=== PATIENT | female | born 1980 | race Caucasian/White ===

== ENCOUNTER → 2022-08-23 07:39 | Outpatient (CLI) | payer OTHER, SELFPAY ==
--- NOTE | 2022-08-23 07:39 | US_ITS ---
FINAL REPORT CLINICAL HISTORY: abdominal pain FINDINGS: Sonographic images of the right upper quadrant were obtained. The pancreas is partially obscured.The liver has an unremarkable appearance. The gallbladder is filled with gallstones. There is no evidence of biliary ductal dilatation.The common duct measures 4mm. Limited images of the right kidney are unremarkable. IMPRESSION: Cholelithiasis. Reviewed, Interpreted and Dictated by Tej Gan III, MD Transcribed by Lauren Gil Authenticated and [facility]
--- NOTE | 2022-08-23 07:39 | MM_ITS ---
PROCEDURE INFORMATION: Exam: Bilateral Screening 3D Mammography Exam date and time: 08/23/2022 8:03 AM Age: 41 years old Clinical indication: Baseline. Her paternal grandmother had breast cancer. TECHNIQUE: Imaging protocol: Bilateral Screening tomosynthesis and 2D mammography including computer-aided detection (CAD) when performed. COMPARISON: No relevant prior studies available. FINDINGS: MAMMOGRAPHY: Breast composition: The breasts are heterogeneously dense, which may obscure small masses. Mass: Bilateral isodense partly circumscribed, partly visualized, best seen in the right breast, 6 o'clock, approximately 1.1 cm, middle 3rd, CC frame 16 and MLO frame 29; and in the left breast, outer aspect, approximately 2.5 cm posterior 3rd, CC frame 37 Architectural distortion: None. Calcifications: No suspicious calcifications. Asymmetric density: None. Skin thickening: None. Axillary adenopathy: None. IMPRESSION: Patient will be recalled for bilateral breast ultrasound for scattered bilateral isodense partly circumscribed partly visualized masses best seen in the right breast at 6 o'clock and in the left outer breast. ASSESSMENT: BI-RADS Category 0: Incomplete- Need Additional Imaging Evaluation and/or Prior Mammograms for Comparison
== END ==
PROVIDERS: PCP Family Medicine; Visit Provider Family Medicine
DX: R10.9 Unspecified abdominal pain (principal); Z12.31 Encounter for screening mammogram for malignant neoplasm of breast
CPT/HCPCS: 76705; 77063; 77067

== ENCOUNTER → 2022-08-24 13:03 | Outpatient (CLI) | payer OTHER, SELFPAY ==
--- NOTE | 2022-08-24 13:04 | MR_ITS ---
FINAL REPORT CLINICAL HISTORY: Worsening headaches 36 years of migranes frontal mainly but whole head hurts when she gets them light , noise and smell can make them worse she has had 6 in the past 2 months vision gets worse and she has floaters FINDINGS: Multiplanar MR imaging of the brain was performed without and with contrast. There is no evidence of intracranial hemorrhage or mass. No abnormal extra-axial fluid collection is seen. The ventricular size is within normal limits. There is no evidence of shift of the midline structures. The posterior fossa and brainstem have an unremarkable appearance. No area of abnormal restricted diffusion is identified. No abnormal contrast enhancement is seen. Normal major vessel vascular flow voids are noted. There is mucosal thickening of multiple sinuses. IMPRESSION: No acute intracranial abnormality identified. Reviewed, Interpreted and Dictated by Tej Gan III, MD Transcribed by Lauren Gil Authenticated and . [facility]
== END ==
PROVIDERS: PCP Family Medicine; Visit Provider Nurse Practitioner Family
DX: R51.9 Headache, unspecified (principal)
CPT/HCPCS: 70553; A9576

== ENCOUNTER → 2022-09-13 13:57 | Outpatient (CLI) | payer OTHER, SELFPAY ==
[2022-09-13 14:48] LABS: Basophils # 0.1 K/mm3 (0-0.2); Basophils % 1.4 % (0.1-2.0); Eosinophils # 0.1 K/mm3 (0.0-0.4); Eosinophils % 1.9 % (0.1-12.0); Hematocrit 38.4 % (37.0-47.0); Hemoglobin 12.5 g/dL (12.2-16.2); Lymphocytes # 1.6 K/mm3 (0.7-4.5); Lymphocytes % 29.2 % (10-50); Mean Corpuscular HGB Conc 32.6 g/dL (31.8-35.4); Mean Corpuscular Volume 82.9 fl (81-99); Mean Platelet Volume 11.3 fl (7.4-10.4); Monocytes # 0.3 K/mm3 (0.1-1.0); Monocytes % 5.3 % (1.7-9.3); Neutrophils # 3.3 K/mm3 (1.8-7.8); Neutrophils % 62.3 % (37.0-80.0); Platelet Count 168 K/mm3 (142-424); Red Blood Count 4.63 M/mm3 (4.20-5.40); Red Cell Distribution Width 12.8 % (11.5-17.5); White Blood Count 5.4 K/mm3 (4.8-10.8)
[2022-09-13 14:57] LABS: Alanine Aminotransferase 21 U/L (12-78); Albumin Level 5.1 g/dl (3.5-5.0); Albumin/Globulin Ratio 1.5 (1.1-1.8); Alkaline Phosphatase 67 U/L (38-126); Anion Gap 11.9 mEq/L (5-15); Aspartate Amino Transferase 26 U/L (14-36); Bilirubin,Total 0.5 mg/dl (0.2-1.3); Blood Urea Nitrogen 12 mg/dl (7-17); Calcium 8.9 mg/dl (8.4-10.2); Carbon Dioxide 30 mmol/L (22.0-30.0); Chloride 100 mmol/L (98-107); Estimated Glomerular Filt Rate 93 ml/min (>60); GFR (African American) 112 ML/MIN (>60); Globulin 3.4 g/dL (1.3-3.2); Glucose 92 mg/dl (74-100); Potassium 3.9 mmoL/L (3.5-5.1); Sodium 138 mmol/L (136-145); Total Protein,Serum 8.5 g/dl (6.3-8.2)
[2022-09-13 15:28] LABS: Thyroid Stimulating Hormone 2.41 uIU/mL (0.465-4.68)
[2022-09-13 16:03] LABS: Vitamin B12 551 pg/mL (239-931)
[2022-09-13 16:13] LABS: Folate 4.81 ng/mL
== END ==
PROVIDERS: PCP Family Medicine; Visit Provider Nurse Practitioner Family
DX: R51.9 Headache, unspecified (principal)
CPT/HCPCS: 36415; 80053; 82607; 82746; 84443; 85025

== ENCOUNTER → 2022-09-18 12:33 | Outpatient (CLI) | payer OTHER, SELFPAY ==
--- NOTE | 2022-09-18 12:33 | US_ITS ---
PROCEDURE INFORMATION: Exam: US Left Breast, Complete Exam date and time: 09/18/2022 1:37 PM Age: 41 years old Clinical indication: Mammogram from 08/23/2022 identified bilateral isodense partially circumscribed masses along the right 6 o'clock axis middle 1/3 and left lateral posterior 1/3 TECHNIQUE: Imaging protocol: Complete ultrasound of all four quadrants of the left breast and the retroareolar regions, including ultrasound of the axilla when performed. COMPARISON: MG MM DIG SCREENING MAMM BI W/CAD 08/23/2022 8:03 AM FINDINGS: Breast: Hypoechoic morphologically similar appearing solid masses throughout the left breast demonstrate generally benign morphologic features highly suggestive of fibroadenoma as follows: 1.1 x 0.7 x 0.3 cm left 12 o'clock 2 cm from nipple 0.4 x 0.6 x 0.3 cm left 2 o'clock 2 cm from the nipple 0.9 x 0.8 x 0.2 cm left 10 o'clock 3 cm from the nipple No suspicious solid or cystic mass is present. No architectural distortion or shadowing is present. No axillary adenopathy is present. IMPRESSION: Six-month follow-up targeted ultrasound is recommended to assure stability of 3 morphologically similar appearing solid left breast masses which demonstrate features highly suggestive of benign fibroadenoma ASSESSMENT: BI-RADS category 3: Probably benign
--- NOTE | 2022-09-18 12:33 | US_ITS ---
PROCEDURE INFORMATION: Exam: US Right Breast, Complete Exam date and time: 09/18/2022 1:25 PM Age: 41 years old Clinical indication: Mammogram from 08/23/2022 identified bilateral isodense partially circumscribed masses along the right 6 o'clock axis middle 1/3 and left lateral posterior 1/3 TECHNIQUE: Imaging protocol: Complete ultrasound of all four quadrants of the right breast and the retroareolar regions, including ultrasound of the axilla when performed. COMPARISON: MG MM DIG SCREENING MAMM BI W/CAD 08/23/2022 8:03 AM FINDINGS: Breast: Hypoechoic morphologically similar appearing solid masses throughout the right breast demonstrate generally benign morphologic features highly suggestive of fibroadenoma as follows: 1.2 x 1.1 x 0.9 cm right 7 o'clock 2 cm from the nipple 0.9 x 0.9 x 0.4 cm right 10 o'clock 2 cm from the nipple 0.3 x 0.2 by 0.3 cm right 11 o'clock 2 cm from the nipple No suspicious solid or cystic mass is present. No architectural distortion or shadowing is present. No axillary adenopathy is present. IMPRESSION: Six-month follow-up targeted ultrasound is recommended to assure stability of 3 morphologically similar appearing solid right breast masses which demonstrate features highly suggestive of benign fibroadenoma ASSESSMENT: BI-RADS category 3: Probably benign
--- NOTE | 2022-09-18 12:34 | US_ITS ---
FINAL REPORT CLINICAL HISTORY: abnormal uterine bleeding FINDINGS: Transvaginal sonographic images of the pelvis were obtained. The uterus is anteverted and measures 8.2 x 6.0 x 4.5 cm. The endometrium measures 11 mm, which is within normal limits. No uterine mass is identified. The right ovary not visualized due to overlying bowel gas. The left ovary measures 3.6 cm in length. Normal blood flow seen to the ovaries. There is a 2 cm left ovarian cyst. There is no evidence of free fluid. IMPRESSION: Right ovary not visualized. 2 cm left ovarian cyst. Reviewed, Interpreted and Dictated by Saji Canseco MD Transcribed by Nohemy Rocha Authenticated and . [facility]
== END ==
PROVIDERS: PCP Family Medicine; Visit Provider Obstetrics & Gynecology
DX: R92.8 Other abnormal and inconclusive findings on diagnostic imaging of breast (principal); N93.9 Abnormal uterine and vaginal bleeding, unspecified
CPT/HCPCS: 76641; 76830

== ENCOUNTER → 2022-09-27 15:21 | Outpatient (CLI) | payer OTHER, SELFPAY ==
[2022-09-27 16:33] LABS: Basophils # 0.1 K/mm3 (0-0.2); Basophils % 1.6 % (0.1-2.0); Eosinophils # 0.1 K/mm3 (0.0-0.4); Eosinophils % 1.7 % (0.1-12.0); Hematocrit 38.1 % (37.0-47.0); Hemoglobin 12.2 g/dL (12.2-16.2); Lymphocytes # 1.9 K/mm3 (0.7-4.5); Lymphocytes % 30.1 % (10-50); Mean Corpuscular Volume 84.3 fl (81-99); Mean Platelet Volume 11.4 fl (7.4-10.4); Monocytes # 0.3 K/mm3 (0.1-1.0); Monocytes % 4.2 % (1.7-9.3); Neutrophils % 62.3 % (37.0-80.0); Platelet Count 173 K/mm3 (142-424); Red Blood Count 4.52 M/mm3 (4.20-5.40); Red Cell Distribution Width 12.8 % (11.5-17.5); White Blood Count 6.4 K/mm3 (4.8-10.8)
[2022-09-27 16:47] LABS: Urine Pregnancy, HCG Qual. Negative (Negative)
[2022-09-27 16:56] LABS: Alanine Aminotransferase 14 U/L (12-78); Albumin Level 4.8 g/dl (3.5-5.0); Albumin/Globulin Ratio 1.7 (1.1-1.8); Alkaline Phosphatase 65 U/L (38-126); Aspartate Amino Transferase 21 U/L (14-36); Bilirubin,Total 0.4 mg/dl (0.2-1.3); Blood Urea Nitrogen 10 mg/dl (7-17); Calcium 8.5 mg/dl (8.4-10.2); Carbon Dioxide 28 mmol/L (22.0-30.0); Chloride 102 mmol/L (98-107); Estimated Glomerular Filt Rate 111 ml/min (>60); GFR (African American) 134 ML/MIN (>60); Globulin 2.8 g/dL (1.3-3.2); Glucose 87 mg/dl (74-100); Sodium 138 mmol/L (136-145); Total Protein,Serum 7.6 g/dl (6.3-8.2)
== END ==
PROVIDERS: PCP Family Medicine; Visit Provider Surgery
DX: Z01.812 Encounter for preprocedural laboratory examination (principal); K80.20 Calculus of gallbladder without cholecystitis without obstruction
CPT/HCPCS: 36415; 80053; 81025; 85025

== ENCOUNTER 2022-10-04 09:25 | Day surgery (SDC) | payer OTHER, SELFPAY ==
[2022-10-01 10:53] VITALS: BMI 27.4
[2022-10-04] VITALS (10 sets, daily range): BP systolic 96–143; BP diastolic 52–89; PULSE 60–73; RESP 12–18; TEMP 36.5–43; O2SAT 97–100
--- NOTE | 2022-10-04 09:34 | P.PN_ITS ---
[facility] Disclaimer: The information contained in this section may have been updated after the patient was seen, as this information can be updated by other users. Medical History Abnormal uterine bleeding Allergies History of gastroesophageal reflux (GERD) Migraines Surgical History History of Family History Grandmother Cancer Social History Smoking Status: Never smoker alcohol intake: never substance use type: denies use current occupational status: employed Travel in the last 8 weeks: None household members: spouse and children housing: house [facility] Anesthesia Checklist Patient Identification Patient Identification: Arm Band and Verbal (Name & ) Structural Data Admitted From: Home Planned Operative Procedure/s: Lap. cholecystectomy Consent for Planned Operative Procedure(s) Verified: Yes NPO Status Verified Time NPO: 00:00 Chart Verification Results Verified: HCG Airway Assessment C-Spine Mobility Assessed: Yes TMJ Mobility Assessed: No Dentition: Good Dentition Neurological Assessment Level of Consciousness: Awake Hx Seizures: No Numbness or tingling in extremities: No Anesthesia Plan Anesthesia Risk discussed: Yes Anesthesia Plan: Verified ASA Class: II Anesthesia Type: General
--- NOTE | 2022-10-04 13:18 | EXP.OP.NOTE ---
Date of procedure: 10/04/22 Pre-op Diagnosis:: Symptomatic cholelithiasis Post-op Diagnosis:: Chronic calculus cholecystitis Procedure performed:: Laparoscopic cholecystectomy Surgeon:: Roderick Solis MD Anesthesia: GETA Estimated blood loss (mL): 15 Operative findings:: Significant infundibular thickening Operative note:: After informed consent was obtained, the patient was taken to the operating room and placed in the supine position. General anesthesia was induced and the abdomen was prepped and draped in a sterile fashion. After infiltration with local anesthetic an infraumbilical incision was made. A Veress needle was placed in position. The abdomen was insufflated. A 5 mm optical trocar was placed in position. Under direct visualization, a 12 mm trocar was placed in the subxiphoid position and 2 additional 5 mm trocars were placed in the right upper quadrant. The gallbladder was elevated up and over the liver margin. The tissue around the cystic duct was carefully dissected. 3 clips were placed proximally and the duct was transected with harmonic noman. Harmonic noman were then utilized to dissect the gallbladder away from the liver margin with careful attention to the control of the cystic artery. The gallbladder was placed in a retrieval bag and removed through the subxiphoid trocar site. The right upper quadrant was thoroughly irrigated. No active bleeding or bile leak was noted. Fascia at the subxiphoid trocar site was reapproximated utilizing 0 Ethibond. The remaining trocars were removed. All wounds were irrigated and skin was closed with 4-0 Monocryl in a subcuticular fashion. Steri-Strips were applied. The patient's anesthetic agents were reversed and extubation was completed prior to transfer to recovery in stable condition. Condition: stable Disposition: PACU Specimens:: Gallbladder and contents Complications:: No immediate
--- NOTE | 2022-10-04 13:23 | P.PNANES_ITS ---
[facility] Anesthesia Record Part I Anesthesia Record I Intake, IV Amount: 1,300 Estimated blood loss (mL): 10 Urine output (mL): 0 Blood Pressure: 123/74 SaO2: 97 Pulse Rate: 60 Respiratory Rate: 12 Temperature: 97.8 F Patient is:: Drowsy, Oral/Nasal airway and Stable Stable to PACU at:: 13:23
--- NOTE | 2022-10-05 09:34 | EXP.ANES.II ---
[facility] Anesthesia Record Part II Anesthesia Record Part II Discharge Time: 13:53 Destination: [facility] PACU nurse assessment reviewed?: Yes Patient Condition:: Good Anesthesia Complications:: None Swallowing reflex intact?: Yes Cyanosis?: Yes Blood Pressure: 142/83 Pulse Rate: 61 Temperature: 97.7 F Mental Status: Alert & Oriented Pain level:: 0 Nausea and/or vomitting:: None Intake, IV Amount: 1,000
[2022-10-05 09:36] VITALS: BP 142/83; PULSE 61; TEMP 36.5
== END 2022-10-04 14:30 | disposition home or self-care (01) ==
PROVIDERS: PCP Family Medicine; Visit Provider Surgery
PROC: 0FT44ZZ Resection of Gallbladder, Percutaneous Endoscopic Approach (ICD-10-PCS; CPT 47562; principal; 2022-10-04 11:15)
DX: K80.10 Calculus of gallbladder with chronic cholecystitis without obstruction (principal); Z79.899 Other long term (current) drug therapy
CPT/HCPCS: 47562; 96374; J2405

== ENCOUNTER → 2023-04-18 12:28 | Outpatient (CLI) | payer OTHER, SELFPAY ==
--- NOTE | 2023-04-18 12:29 | US_ITS ---
PROCEDURE INFORMATION: Exam: US Left Breast, Complete Exam date and time: 04/18/2023 1:14 PM Age: 42 years old Clinical indication: 6 month follow-up US breast for left breast masses TECHNIQUE: Imaging protocol: Complete ultrasound of all four quadrants of the left breast and the retroareolar regions, including ultrasound of the axilla when performed. COMPARISON: US BREAST LT COMPLETE 09/18/2022 1:37 PM FINDINGS: Breast: Sonographic images of the left breast including the retroareolar region, all 4 quadrants and the axilla demonstrates 3 stable hypoechoic masses. Left upper outer quadrant 2 cm from the nipple 0.8 x 0.9 x 0.4 cm, 2 o'clock axis 2 cm from the nipple 0.5 x 0.7 x 0.4 cm, and 10 o'clock axis 3 cm from the nipple 0.9 x 1.1 x 0.2 cm. New similar appearing hypoechoic mass in the 11 o'clock axis 5 cm from the nipple measures 0.8 x 0.9 x 0.3 cm.. No architectural distortion or acoustical shadowing. No skin thickening or axillary adenopathy. IMPRESSION: Multiple similar appearing hypoechoic masses in the left breast, 1 of which is new compared to prior sonogram dated 09/18/2022. The remainder stable compared to prior study. A six-month follow-up left breast ultrasound is recommended to ensure stability over time ASSESSMENT: BI-RADS Category 3: Probably benign
--- NOTE | 2023-04-18 12:29 | US_ITS ---
PROCEDURE INFORMATION: Exam: US Right Breast, Complete Exam date and time: 04/18/2023 12:54 PM Age: 42 years old Clinical indication: 6 month follow-up US right breast masses TECHNIQUE: Imaging protocol: Complete ultrasound of all four quadrants of the right breast and the retroareolar regions, including ultrasound of the axilla when performed. COMPARISON: US BREAST RT COMPLETE 09/18/2022 1:25 PM FINDINGS: Breast: Sonographic images of the right breast including the retroareolar region, all 4 quadrants and the axilla demonstrates 3 stable hypoechoic masses. 7 o'clock axis 2 cm from the nipple measuring 1.1 x 1.2 x 0.8 cm, 10 o'clock axis 2 cm from the nipple 0.8 x 0.9 x 0.3 cm, and 11 o'clock axis 2 cm from the nipple 0.7 x 0.4 x 0.2 cm. No architectural distortion or acoustical shadowing. No skin thickening or axillary adenopathy. IMPRESSION: Stable hypoechoic masses compared to prior sonogram dated 09/18/2022. A six-month follow-up right breast ultrasound is recommended for continued close surveillance ASSESSMENT: BI-RADS Category 3: Probably benign
== END ==
PROVIDERS: PCP Family Medicine; Visit Provider Family Medicine
DX: R92.8 Other abnormal and inconclusive findings on diagnostic imaging of breast (principal)
CPT/HCPCS: 76641

== ENCOUNTER 2023-09-03 10:38 | Outpatient (CLI) | payer OTHER, SELFPAY ==
--- NOTE | 2023-09-03 10:39 | MM_ITS ---
PROCEDURE INFORMATION: Exam: MG Bilateral Screening 3D Mammography Exam date and time: 09/03/2023 10:35 AM Age: 42 years old Clinical indication: Screening, has been followed for bilateral breast masses since 09/18/2022, with most recent sonography 04/18/2023. Her paternal grandmother had breast cancer. TECHNIQUE: Imaging protocol: Bilateral Screening tomosynthesis and 2D mammography including computer-aided detection (CAD) when performed. COMPARISON: 1. MG MM DIG SCREENING MAMM BI W/CAD 08/23/2022 8:03 AM 2. US BREAST LT COMPLETE 04/18/2023 1:14 PM 3. US BREAST RT COMPLETE 04/18/2023 12:54 PM 4. US BREAST LT COMPLETE 09/18/2022 1:37 PM FINDINGS: MAMMOGRAPHY: Breast composition: The breasts are heterogeneously dense, which may obscure small masses. Mass: Stable bilateral isodense partly circumscribed, partly visualized masses in the right breast 6 o'clock middle 3rd a proximally 1.1 cm, CC frame 18. and left breast outer aspect approximately 2.5 cm posterior 3rd, CC frame 18. Architectural distortion: None. Calcifications: No suspicious calcifications. Asymmetric density: None. Skin thickening: None. Axillary adenopathy: None. IMPRESSION: See comment Stable appearance of mammographic masses since 08/23/2022, better delineated on sonography with six-month follow-up bilateral sonography due September 2023, unless otherwise clinically indicated. Annual screening is recommended unless otherwise clinically indicated. ASSESSMENT: BI-RADS Category 2: Benign.
== END 2023-09-03 23:59 ==
LOC: RAD 10:39
PROVIDERS: PCP Family Medicine; Visit Provider Family Medicine
DX: Z12.31 Encounter for screening mammogram for malignant neoplasm of breast (principal)
CPT/HCPCS: 77063; 77067

== ENCOUNTER 2023-10-29 13:39 | Outpatient (CLI) | payer OTHER, SELFPAY ==
--- NOTE | 2023-10-29 13:39 | US_ITS ---
PROCEDURE INFORMATION: Exam: US Right Breast, Complete Exam date and time: 10/29/2023 2:25 PM Age: 42 years old Clinical indication: Abnormal findings; Mass, lump, or swelling; Right; Additional info: 6 month follow-up US denton breast TECHNIQUE: Imaging protocol: Complete ultrasound of all four quadrants of the right breast and the retroareolar regions, including ultrasound of the axilla when performed. COMPARISON: US BREAST RT COMPLETE 04/18/2023 12:54 PM Sonogram dated 09/18/2022 FINDINGS: ULTRASOUND: Breast ultrasound findings: Sonographic images of the right breast including the retroareolar region, all 4 quadrants and the axilla demonstrates 3 stable hypoechoic masses as follows: 7o'clock axis 1.1 x 1.0 x 0.8 cm, 10 o'clock axis 2 cm from the nipple 0.8 x 0.9 x 0.3 cm, and 11 o'clock axis 2 cm from the nipple 0.8 x 0.5 x 0.2 cm. New hypoechoic probably benign mass in the 6 o'clock axis 3 cm from the nipple measuring 0.3 x 0.6 x 0.3 cm.. No architectural distortion or acoustical shadowing. No skin thickening or axillary adenopathy. IMPRESSION: Stable probably benign right breast masses compared to prior sonogram dated 09/18/2022 with the exception of 1 new probably benign additional mass in the 6 o'clock axis. A six-month follow-up right breast ultrasound is recommended for continued close surveillance ASSESSMENT: BI-RADS Category 3: Probably benign.
--- NOTE | 2023-10-29 13:39 | US_ITS ---
PROCEDURE INFORMATION: Exam: US Left Breast, Complete Exam date and time: 10/29/2023 1:57 PM Age: 42 years old Clinical indication: 6 month follow-up US denton breast TECHNIQUE: Imaging protocol: Complete ultrasound of all four quadrants of the left breast and the retroareolar regions, including ultrasound of the axilla when performed. COMPARISON: US BREAST LT COMPLETE 04/18/2023 1:14 PM FINDINGS: ULTRASOUND: Breast ultrasound findings: Sonographic images of the left breast including the retroareolar region, all 4 quadrants and the axilla demonstrates stable ovoid hypoechoic solid masses as follows: 12 o'clock axis 2 cm from the nipple 1.1 x 1.0 x 0.3 cm, 2 o'clock axis 7 cm from the nipple 0.5 x 0.4 x 0.2 cm, 4 o'clock axis 3 cm from the nipple 0.7 x 0.3 x 0.6 cm, and 10 o'clock axis 3 cm from the nipple measuring 0.9 x 0.8 x 0.2 cm. Minimal subcentimeter cystic changes otherwise noted. No architectural distortion or acoustical shadowing. No skin thickening or axillary adenopathy. IMPRESSION: Stable probably benign solid masses in the left breast compared to prior sonograms dating back to and including 09/18/2022 the exception of the left 11 o'clock axis nodule which is stable compared to prior sonogram dated 04/18/2023. A six-month follow-up left breast ultrasound is recommended for continued close surveillance ASSESSMENT: BI-RADS Category 3: Probably benign.
== END 2023-10-29 23:59 | disposition home or self-care (01) ==
LOC: RAD 13:39
PROVIDERS: PCP Family Medicine; Visit Provider Family Medicine
DX: R92.8 Other abnormal and inconclusive findings on diagnostic imaging of breast (principal)
CPT/HCPCS: 76641

== ENCOUNTER 2024-03-23 14:22 | Outpatient (CLI) | payer OTHER, SELFPAY ==
--- NOTE | 2024-03-23 14:23 | US_ITS ---
PROCEDURE INFORMATION: Exam: US Right Breast, Complete US Left Breast, Complete Exam date and time: 03/23/2024 2:34 PM Age: 43 years old Clinical indication: Bilateral probably benign masses, for follow-up. TECHNIQUE: Imaging protocol: Complete ultrasound of all four quadrants of the right breast and the retroareolar regions, including ultrasound of the axilla when performed. Complete ultrasound of all four quadrants of the left breast and the retroareolar regions, including ultrasound of the axilla when performed. COMPARISON: US BREAST RT COMPLETE 10/29/2023 2:25 PM FINDINGS: ULTRASOUND: Breast ultrasound findings: Complete scanning of the right breast is performed. There are multiple similar hypoechoic oval circumscribed masses with parallel orientation, which has the same morphology as seen on the left side, that are not significantly changed with when compared to prior studies dating back to 04/18/2023. The largest is in the right breast 7 o'clock axis, 2 cm from the nipple and measures 1.1 x 1.0 x 0.9 cm, and is not significantly changed in size. There is no dominant or suspicious mass. The previously described mass in the right breast 6 o'clock axis, 3 cm from the nipple is most consistent with a minimally complicated cyst, now measuring 0.4 x 0.2 x 0.5 cm. There is no axillary adenopathy. Complete scanning of the left breast is performed. As seen on the right, there are multiple circumscribed hypoechoic oval masses with parallel orientation, that are not significantly changed since prior studies. The largest measures 1.0 x 0.4 x 1.0 cm at the 12 o'clock axis, 4 cm from the nipple. Note is made of an ovoid 0.7 x 0.3 x 0.7 cm mass in the left upper outer quadrant, 2 o'clock axis, 7 cm from the nipple. Due to its depth within the tissues, it is believed to represent a complicated cyst but does not demonstrate through transmission. Therefore, six-month follow-up of this particular mass is recommended. No left axillary adenopathy. IMPRESSION: 1. Multiple similar circumscribed masses in both breasts. Probably benign minimally complicated cyst in the right breast 6 o'clock axis, 3 cm from the nipple, stable since 10/29/2023. In the left breast, there is a probably benign hypoechoic mass at 2 o'clock, 7 cm from the nipple. Six-month follow-up ultrasound for these findings is recommended. 2. A screening bilateral mammogram is due in August of 2024. ASSESSMENT: BI-RADS Category 3: Probably benign.
== END 2024-03-23 23:59 | disposition home or self-care (01) ==
LOC: RAD 14:23
PROVIDERS: PCP Family Medicine; Visit Provider Family Medicine
DX: R92.8 Other abnormal and inconclusive findings on diagnostic imaging of breast (principal)
CPT/HCPCS: 76641

== ENCOUNTER 2024-05-06 15:00 | Outpatient (RCR) | payer OTHER, SELFPAY | END 2024-05-20 08:01 | disposition home or self-care (01) | LOC: PT 15:00 | PROVIDERS: Visit Provider Orthopaedic Surgery Adult Reconstructive Orthopaedic Surgery | DX: M25.511 Pain in right shoulder (principal) | CPT/HCPCS: 97014; 97110; 97140; 97163; 97164; 97530; G0283 ==

== ENCOUNTER 2024-09-24 14:35 | Outpatient (CLI) | payer OTHER, SELFPAY ==
--- NOTE | 2024-09-24 15:00 | US_ITS ---
PROCEDURE INFORMATION: Exam: US Left Breast, Complete US Right Breast, Complete Exam date and time: 09/24/2024 2:41 PM Age: 43 years old Clinical indication: History of multiple similar bilateral circumscribed masses. For follow-up of a complicated cyst in the right breast 6 o'clock axis and a left breast probably benign hypoechoic mass at the 2 o'clock axis. TECHNIQUE: Imaging protocol: Complete ultrasound of all four quadrants of the left breast and the retroareolar regions, including ultrasound of the axilla when performed. Complete ultrasound of all four quadrants of the right breast and the retroareolar regions, including ultrasound of the axilla when performed. COMPARISON: US BREAST LT COMPLETE 03/23/2024 2:48 PM FINDINGS: ULTRASOUND: Breast ultrasound findings: Follow-up ultrasound of the right breast is performed. In the 6 o'clock axis, 3 cm from the nipple there is no significant change in the complicated cyst which measures 0.4 x 0.3 x 0.4 cm. No change in the hypoechoic mass in the 7 o'clock axis, 2 cm from the nipple measuring 1.0 x 1.0 x 0.8 cm. Other circumscribed masses are stable and consistent with a benign process. No right axillary adenopathy. Follow-up ultrasound of the left breast demonstrates no persistent complicated cyst at the 2 o'clock axis, 7 cm from the nipple. A benign cyst is seen superficial to the previously visualized finding, measuring 0.5 cm. Additional circumscribed hypoechoic masses in the left breast are stable and consistent with benign processes. There is no left axillary adenopathy. IMPRESSION: 1. No persistent finding in the left breast since prior ultrasound of 03/23/2024. There are stable circumscribed masses consistent with a benign process. 2. In the right breast 6 o'clock axis, 3 cm from the nipple, there is a stable complicated cyst measuring 0.4 cm which is unchanged since 10/29/2023. Six-month follow-up right breast ultrasound is recommended. 3. If the patient has not had a screening mammogram in 2024, she is due at this time. ASSESSMENT: BI-RADS Category 3: Probably benign.
== END 2024-09-24 23:59 | disposition home or self-care (01) ==
LOC: RAD 14:35
PROVIDERS: PCP Family Medicine; Visit Provider Family Medicine
DX: R92.8 Other abnormal and inconclusive findings on diagnostic imaging of breast (principal)
CPT/HCPCS: 76641

== ENCOUNTER 2024-10-12 14:50 | Outpatient (CLI) | payer OTHER, SELFPAY ==
--- NOTE | 2024-10-12 15:00 | MM_ITS ---
PROCEDURE INFORMATION: Exam: MG Bilateral Screening 3D Mammography Exam date and time: 10/12/2024 2:59 PM Age: 43 years old Clinical indication: Screening exam TECHNIQUE: Imaging protocol: Bilateral Screening tomosynthesis and 2D mammography including computer-aided detection (CAD) when performed. COMPARISON: 1. MG MM DIG SCREENING MAMM BI W/CAD 09/03/2023 10:35 AM 2. MG MM DIG SCREENING MAMM BI W/CAD 08/23/2022 8:03 AM FINDINGS: MAMMOGRAPHY: Breast composition: The breasts are heterogeneously dense, which may obscure small masses. Mass: No suspicious masses. Architectural distortion: None. Calcifications: No suspicious calcifications. Asymmetric density: None. Skin thickening: None. Axillary adenopathy: None. IMPRESSION: 1. No mammographic evidence of malignancy. Annual screening is recommended unless otherwise clinically indicated. 2. The patient is in a follow-up protocol for probably benign right breast masses which are best evaluated with ultrasound. She will be due for follow-up right breast ultrasound in six-months. ASSESSMENT: BI-RADS Category 1: Negative.
== END 2024-10-12 23:59 | disposition home or self-care (01) ==
LOC: RAD 14:50
PROVIDERS: PCP Family Medicine; Visit Provider Family Medicine
DX: Z12.31 Encounter for screening mammogram for malignant neoplasm of breast (principal)
CPT/HCPCS: 77063; 77067